=== PATIENT | male | born 1995 | race Caucasian/White ===

== ENCOUNTER 2022-06-12 09:53 | Emergency (ER) | payer MEDICAID ==
[~2022-06-12] VITALS: Ht 172.7 cm; Wt 68.0 kg
[2022-06-12 10:02] VITALS: BP 143/68
[2022-06-12] MEDS ORDERED: IBUP-2029 MT (11:00)
[2022-06-12] MEDS ORDERED: CEFTRIAXONE SODIUM 500 MG/VIAL IM ONE (11:00)
[2022-06-12] MEDS ORDERED: AZITHROMYCIN 500 MG TABLET PO NR (12:00)
[2022-06-12 12:17] LABS: CLARITY URINE CLEAR (CLEAR); COLOR URINE YELLOW (YELLOW); KETONES URINE NEGATIVE (NEGATIVE); LEUKOCYTE ESTERASE URINE NEGATIVE (NEGATIVE); NITRITE URINE NEGATIVE (NEGATIVE); OCCULT BLOOD URINE NEGATIVE (NEGATIVE); PROTEIN URINE NEGATIVE (NEGATIVE); SPECIFIC GRAVITY URINE 1.015 (1.005-1.030); UROBILINOGEN URINE 0.2 E.U./dL (0.2-1.0)
[2022-06-13] MEDS ORDERED: AZITHROMYCIN 500 MG TABLET PO SCH (09:00)
[2022-06-15 04:07] LABS: NEISSERIA GONORRHOEAE NAA Negative (Negative)
== END 2022-06-12 12:13 | disposition home or self-care (01) ==
LOC: ER 10:08
DX: R30.0 Dysuria (principal); R50.9 Fever, unspecified
CPT/HCPCS: 81003; 87491; 87591; 96372; 99283; J0696

== ENCOUNTER 2024-05-13 10:53 | Emergency (ER) | payer MEDICAID ==
[~2024-05-13] VITALS: Ht 172.7 cm; Wt 79.0 kg
[~2024-05-13 10:53] MED LIST: IBUP-2029 MT
[2024-05-13 11:10] VITALS: BP 108/71; PULSE 72; RESP 20; TEMP 36.6; O2SAT 100
== END 2024-05-13 11:54 | disposition home or self-care (01) ==
LOC: ER 10:53
DX: J06.9 Acute upper respiratory infection, unspecified (principal)
CPT/HCPCS: 99281